=== PATIENT | male | born 1990 | race Two or more races ===

== ENCOUNTER 2024-02-03 22:28 | Emergency (ER) | payer OTHER ==
[~2024-02-03] VITALS: Ht 170.2 cm; Wt 68.3 kg
[2024-02-03 23:21] VITALS: BP 156/81; PULSE 86; RESP 16; TEMP 98.3
[2024-02-04] MEDS ORDERED: MUPI2OIN2 EX (01:03)
[2024-02-04 02:00] VITALS: O2SAT 99
[2024-02-04] MEDS: AMPICILLIN & SULBACTAM SODIUM 3 GM in SODIUM CHL 0.9% 100 ML IV SCH (02:30)
== END 2024-02-04 02:30 | disposition home or self-care (01) ==
LOC: ER 22:28
DX: T81.30XA Disruption of wound, unspecified, initial encounter (principal)

== ENCOUNTER 2024-10-21 19:59 | Emergency (ER) | payer OTHER ==
[~2024-10-21] VITALS: Ht 170.2 cm; Wt 66.0 kg
[~2024-10-21 19:59] MED LIST: MUPI2OIN2 EX
--- NOTE | 2024-10-21 20:12 | ED.PDOC ---
HPI Comments 33-year-old male with no significant past medical history brought in by self complaining of chest pain and shortness of breath for the last week. Patient states he has had tooth pain, was evaluated by his dentist, however was told no work could be done due to his elevated blood pressure. Patient states his blood pressure has been in the 160s over 100s. The chest pain is described as tightness, localized to the mid chest, is intermittent, no particular exacerbating or alleviating factors, associated with shortness of breath described as it feels hard to take a breath when I am having the pain. He denies any fever, cough, nausea, vomiting, diaphoresis or edema. Patient states he is not currently having chest pain or shortness of breath. Chief Complaint: Chest Pain Time Seen by MD: 20:10 Reviewed Notes: Nurses Notes, Medications, Allergies Allergies: Coded Allergies: NO KNOWN ALLERGIES (Unverified , 02/03/24) Home Meds Active Scripts Losartan Potassium (Losartan Potassium) 50 Mg Tab, 1 TAB PO DAILY, #30 TAB 5 Refills Prov:KAYLA GALLEGOS MD 10/21/24 Ibuprofen Micronized (Ibuprofen) 800 Mg Tab, 800 MG PO Q8HP PRN, #30 TAB Prn pain, take with food Prov:KAYLA GALLEGOS MD 10/21/24 Hydrocodone-Acetaminophen (Hydrocodone Bitartrate/AC 5-325 mg) 1 Tab Tab, 1 TAB PO Q6HP PRN, #15 TAB Prn breakthrough pain Prov:KAYLA GALLEGOS MD 10/21/24 Mupirocin (Pseudomonas Fluores (Mupirocin) 2 % Oin, 1 APPLIC EX TID, #15 GM Prov:ISAIAH GONZALEZ BUTCHER'S ASSISTANT 02/04/24 Information Source: Patient Mode of Arrival: Ambulatory Severity: Moderate Timing: Weeks Duration: Since onset Prehospital treatment: None Location: Substernal Radiation: No Radiation Onset: At Rest Cardiac Risk Factors: Smoker PE Risk Factors: None History of: None Modifying Factors: Nothing Associated Signs and Symptoms: SOB Past Medical History PAST MEDICAL HISTORY: Denies Surgical History: Denies all surgeries Family History Family History: Family hx of HTN Social History Smoker: Cigarettes Alcohol: Denies ETOH Use Drugs: Denies Drug Use Lives In: Home Constitutional: denies: chills, diaphoresis, fatigue, fever, malaise, sweats, weakness, others EENTM: denies: blurred vision, double vision, ear bleeding, ear discharge, ear drainage, ear pain, ear ringing, eye pain, eye redness, hearing loss, mouth pain, mouth swelling, nasal discharge, nose bleeding, nose congestion, nose pain, photophobia, tearing, throat pain, throat swelling, voice changes, others Respiratory: reports: shortness of breath; denies: cough, hemoptysis, orthopnea, SOB at rest, SOB with excertion, stridor, wheezing, others Cardiovascular: reports: chest pain; denies: dizzy spells, diaphoresis, Dyspnea on exertion, edema, irregular heart beat, left arm pain, lightheadedness, palpitations, PND, syncope, others Gastrointestinal: denies: abdomen distended, abdominal pain, blood streaked bowels, constipated, diarrhea, dysphagia, difficulty swallowing, hematemesis, melena, nausea, poor appetite, poor fluid intake, rectal bleeding, rectal pain, vomiting, others Genitourinary: denies: burning, dysuria, flank pain, frequency, hematuria, incontinence, penile discharge, penile sore, pain, testicle pain, testicle swelling, urgency, others Neurological: denies: dizziness, fainting, headache, left sided numbness, left sided weakness, numbness, paresthesia, pre-existing deficit, right sided numbness, right sided weakness, seizure, speech problems, tingling, tremors, weakness, others Musculoskeletal: denies: back pain, gout, joint pain, joint swelling, muscle pain, muscle stiffness, neck pain, others Integumetry: denies: bruises, change in color, change in hair/nails, dryness, laceration, lesions, lumps, rash, wounds, others Allergic/Immunocompromised: denies: Difficulty Healing, Frequent Infections, Hives, Itching, others Hematologic/Lymphatic: denies: anemia, blood clots, easy bleeding, easy bruising, swollen glands, others Endocrine: denies: excessive hunger, excessive sweating, excessive thirst, excessive urination, flushing, intolerance to cold, intolerance to heat, unexplained weight gain, unexplained weight loss, others Psychiatric: denies: anxiety, bipolar disorder, depression, hopeless, panic disorder, schizophrenia, sleepless, suicidal, others All Other Systems: Reviewed and Negative (Comprehensive systems review obtained and negative except for what is stated in the HPI.) Physical Exam General Appearance: No Apparent Distress, Normal HEENT: Other (Pupils and face symmetric. Moist mucous membranes. Left upper and right lower molars tender to palpation. No surrounding gingival erythema, edema, discharge or tenderness) Neck: Full Range of Motion, Normal Inspection Respiratory: Lungs Clear, No Accessory Muscle Use, No Respiratory Distress, Normal Breath Sounds Cardiovascular: No Edema, No JVD, Regular Rate/Rhythm Breast Exam: Deferred Gastrointestinal: Non Tender, Soft Genitalia: Deferred Pelvic: Deferred Rectal: Deferred Extremities: Normal inspection, Normal range of motion, Non-tender, No pedal edema Neurologic: Alert (Oriented x4), Normal Affect, Normal Mood, Other (Ambulatory. No gross focal deficit.) Cerebellar Function: NOT DONE Reflexes: NOT DONE Skin: Dry, Normal Color, Warm Lymphatic: NOT DONE EKG EKG : Comments Sinus rhythm, rate 94, short NE interval at 89, normal QRS and QTC intervals, normal axis, normal QRS, no ST/T changes. Was a procedure done? Was a procedure done?: No CP Differential Dx Differential Diagnosis: Angina, Anxiety / Panic Attack, Heart Failure, [place] Differential Diagnosis: HTN Essential, HTN Accelerated Differential Diagnosis: Angina, Chest Wall Pain, Costochondritis X-Ray, Labs, Meds, VS Vital Signs Date Time Temp Pulse Resp B/P (MAP) Pulse Ox O2 Delivery O2 Flow Rate FiO2 10/21/24 20:17 160/114 10/21/24 20:03 94 Lab Test 10/21/24 21:03 10/21/24 20:11 Range/Units Troponin I High Sensitivity 3 L 3 L </=54 ng/L White Blood Count 6.5 4.4-10.8 10^3/uL Red Blood Count 5.43 4.5-5.90 10^6/uL Hemoglobin 16.2 13.5-17.5 g/dL Hematocrit 46.6 41.0-53.0 % Mean Corpuscular Volume 85.8 80.0-100.0 fL Mean Corpuscular Hemoglobin 29.8 28.0-32.0 pg Mean Corpuscular Hemoglobin Concent 34.7 32.0-36.0 g/dL Red Cell Distribution Width 14.4 H 11.8-14.3 % Platelet Count 266 140-450 10^3/uL Mean Platelet Volume 7.1 6.9-10.8 fL Neutrophils (%) (Auto) 53.6 37.0-80.0 % Lymphocytes (%) (Auto) 35.1 10.0-50.0 % Monocytes (%) (Auto) 6.2 0.0-12.0 % Eosinophils (%) (Auto) 2.2 0.0-7.0 % Basophils (%) (Auto) 2.9 H 0.0-2.0 % Neutrophils # (Auto) 3.5 1.6-8.6 10 ^3/uL Lymphocytes # (Auto) 2.3 0.4-5.4 10 ^3/uL Monocytes # (Auto) 0.4 0-1.3 10 ^3/uL Eosinophils # (Auto) 0.1 0-0.8 10 ^3/uL Basophils # (Auto) 0.2 0-0.2 10 ^3/uL Nucleated Red Blood Cells 0.1 % Sodium Level 138 136-145 mmol/L Potassium Level 4.0 3.5-5.1 mmol/L Chloride Level 101 98-107 mmol/L Carbon Dioxide Level 29 20-31 mmol/L Anion Gap 8 5-15 Blood Urea Nitrogen 11 9-23 mg/dL Creatinine 1.07 0.700-1.30 mg/dL Glomerular Filtration Rate Calc 93 >90 mL/min BUN/Creatinine Ratio 10.3 10.0-20.0 Serum Glucose 101 74-106 mg/dL Calcium Level 10.2 8.7-10.4 mg/dL B-Type Natriuretic Peptide 4.87 0-100 pg/mL Current Medications Medications (Trade) Dose Ordered Sig/Radha Route Start Time Stop Time Status Last Admin Nitroglycerin (Nitro-Bid) 1 pkg ONCE ONCE TD 10/21/24 20:15 10/21/24 20:16 DC 10/21/24 20:17 Acetaminophen/ Hydrocodone Bitart (Runge 5/325MG Tab) 2 tab ONCE ONCE PO 10/21/24 20:15 10/21/24 20:16 DC 10/21/24 20:[address] [address] Ph: [phone] DIAGNOSTIC IMAGING Diagnostic Imaging Report : [id number] Signed PATIENT: BARBARA BURCIAGA ACCT: [id number] UNIT: [id number] : 1990 LOC: ER ROOM / BED: / AGE / SEX: 33 / M ADM STATUS: REG ER SERVICE 03 ORDERING PHYSICIAN: KAYLA GALLEGOS MD PROCEDURE(s): CXRP - CHEST PORTABLE REASON: cp ORDER NUMBER(s): [id number], ACCESSION NUMBER(s): [id number] EXAM: XY CHEST PORTABLE TECHNIQUE: Single frontal chest radiograph CLINICAL HISTORY: cp COMPARISON: None Findings/Impression: Frontal chest radiograph demonstrates no acute osseous or superficial soft tissue abnormalities. The trachea is midline. The cardiac silhouette and mediastinum are within normal limits. No pneumothorax, pleural effusions, or consolidations. ATED BY: GEORGIE MEDRANO DO DICTATED DATE/TIME: 10/21/242032 SIGNED BY: GEORGIE MEDRANO DO SIGNED DATE/TIME: 10/21/242032 CC: X-Ray, Labs, Meds, VS Comment 33-year-old male with no significant past medical history presenting with chest pain and shortness of breath for the past week. Vitals remarkable for BP 160/114 Exam unremarkable Rhythm strip independently interpreted by me: Sinus rhythm, rate 76, no ectopy. Chest x-ray Findings/Impression: Frontal chest radiograph demonstrates no acute osseous or superficial soft tissue abnormalities. The trachea is midline. The cardiac silhouette and mediastinum are within normal limits. No pneumothorax, pleural effusions, or consolidations. CBC, metabolic panel, BNP and 2 serial troponins unremarkable Patient treated with the following in the ED: Runge 5/325 mg 2 tablets p.o., Nitro-Bid 1/2 inch to chest wall On re-evaluation, patient states he is not in any pain, blood pressure has improved. Patient is not in respiratory distress, and oxygen saturation is normal on room air. Hospitalization was considered, however patient had rapid improvement of symptoms with treatment in the ED, and I no longer feel hospitalization is necessary. Patient now appears stable for discharge with close outpatient follow-up with his primary physician for repeat blood pressure check, and follow-up with his dentist once blood pressure is controlled. I will prescribe pain medication, as his elevated blood pressure may be due to tooth pain. Time of 1ST Reevaluation: 20:40 Reevaluation 1ST: Unchanged Time of 2ND Reevaluation: 22:27 Reevaluation 2ND: Improved Patient Education/Counseling: Diagnosis, Treatment Family Education/Counseling: No Family Present Departure 1 Departure Time of Disposition: 22:27 Impression: Primary Impression: Hypertension Qualified Codes: I10 - Essential (primary) hypertension Additional Impressions: Chest pain Qualified Codes: R07.9 - Chest pain, unspecified Odontalgia Disposition: HOME / SELF CARE / HOMELESS Condition: Stable Additional Instructions: Your blood tests, including screening test for heart attack and heart failure were unremarkable. Your chest x-ray was normal. Your blood pressure has improved. I have prescribed pain medication for your tooth pain well as blood pressure medication. Follow-up with your primary doctor in 1-2 days for repeat blood pressure check. Follow-up with your dentist as soon as possible once blood pressure is under control. e-Prescriptions Losartan Potassium (Losartan Potassium) 50 Mg Tab 1 TAB PO DAILY, #30 TAB 5 Refills Prov: KAYLA GALLEGOS MD 10/21/24 Ibuprofen Micronized (Ibuprofen) 800 Mg Tab 800 MG PO Q8HP PRN, #30 TAB Prn pain, take with food Prov: KAYLA GALLEGOS MD 10/21/24 Hydrocodone-Acetaminophen (Hydrocodone Bitartrate/AC 5-325 mg) 1 Tab Tab 1 TAB PO Q6HP PRN, #15 TAB Prn breakthrough pain Prov: KAYLA GALLEGOS MD 10/21/24 Discharged With: Relative Critical Care Note Critical Care Time?: No Stability Stability form required: No Heart Score Heart Score: Heart Score Response (Comments) Value History N/A 0 EKG N/A 0 Age N/A 0 Risk Factors N/A 0 Troponin N/A 0 Total 0 I personally scribed for KAYLA GALLEGOS MD ([email or web address]) on 10/21/24 at 20:12. Electronically submitted by Cynthia Velazquez ([email or web address]). I personally scribed for KAYLA GALLEGOS MD ([email or web address]) on 10/21/24 at 2 2:04. Electronically submitted by Cynthia Velazquez ([email or web address]). KAYLA GALLEGOS MD Oct 21, 2024 20:12
[2024-10-21] MEDS: HYDROcodone-ACET 5/325MG TAB PO ONE (20:17)
[2024-10-21] MEDS: NITROGLYCERIN 2% OINT 1GM PKG TD ONE (20:17)
[2024-10-21 20:30] LABS: Basophils # (auto) 0.2 10 ^3/uL (0-0.2); Basophils % (auto) 2.9 % (0.0-2.0); Eosinophils # (auto) 0.1 10 ^3/uL (0-0.8); Eosinophils % (auto) 2.2 % (0.0-7.0); Hematocrit 46.6 % (41.0-53.0); Hemoglobin 16.2 g/dL (13.5-17.5); Lymphocytes # (auto) 2.3 10 ^3/uL (0.4-5.4); Lymphocytes % (auto) 35.1 % (10.0-50.0); Mean Corpuscular Hemoglobin 29.8 pg (28.0-32.0); Mean Corpuscular Hgb Conc. 34.7 g/dL (32.0-36.0); Mean Corpuscular Volume 85.8 fL (80.0-100.0); Monocytes # (auto) 0.4 10 ^3/uL (0-1.3); Monocytes % (auto) 6.2 % (0.0-12.0); Neutrophils # (auto) 3.5 10 ^3/uL (1.6-8.6); Neutrophils % (auto) 53.6 % (37.0-80.0); Nucleated Red Blood Cells % 0.1 %; Platelet Count (auto) 266 10^3/uL (140-450); Red Blood Cells 5.43 10^6/uL (4.5-5.90); Red Cell Distribution Width 14.4 % (11.8-14.3); White Blood Cell 6.5 10^3/uL (4.4-10.8)
[2024-10-21 20:33] LABS: Chloride 101 mmol/L (98-107); Sodium 138 mmol/L (136-145)
[2024-10-21 20:34] LABS: Anion Gap 8 (5-15); Carbon Dioxide 29 mmol/L (20-31)
[2024-10-21 20:35] LABS: Calcium 10.2 mg/dL (8.7-10.4)
--- NOTE | 2024-10-21 20:35 | DVH ---
EXAM: XY CHEST PORTABLE TECHNIQUE: Single frontal chest radiograph CLINICAL HISTORY: cp COMPARISON: None Findings/Impression: Frontal chest radiograph demonstrates no acute osseous or superficial soft tissue abnormalities. The trachea is midline. The cardiac silhouette and mediastinum are within normal limits. No pneumothorax, pleural effusions, or consolidations.
[2024-10-21 20:39] LABS: BUN/Creatinine Ratio 10.3 (10.0-20.0); Blood Urea Nitrogen 11 mg/dL (9-23); Glucose 101 mg/dL (74-106)
[2024-10-21] MEDS ORDERED: LOSA-534 PO (22:31)
[2024-10-21] MEDS ORDERED: IBUP-1455 PO (22:31)
[2024-10-21] MEDS ORDERED: HYDR-4902 PO (22:31)
[2024-10-22 01:02] VITALS: PULSE 85; RESP 16; TEMP 97.9; O2SAT 95
[2024-10-22] MEDS: cloNIDine HCL 0.1 MG TAB PO ONE ×2 (01:12→01:30)
[2024-10-22 02:37] VITALS: BP 157/96
--- NOTE | 2024-10-22 12:34 | ECG ---
[facility] Test Date: 2024-10-21 Test Time: 20:03:46 Pat Name: BARBARA BURCIAGA Department: ER Room: Gender: M [employer]: : 1990 Requested By: EMERGENCY EMERGENCY Order Number: [id number] Reading MD: Douglas Candelario Measurements Intervals [place] Rate: 94 P: 46 [place]: 89 QRS: 56 QRSD: 82 T: 39 QT: 343 QTc: 429 Interpretive Statements Sinus rhythm Short [place] interval Electronically Signed On 10-25-2024 17:33:48 PST by Douglas Candelario Please click the below link to view image of tracing.
== END 2024-10-22 02:38 | disposition home or self-care (01) ==
LOC: ER 19:59
DX: I10 Essential (primary) hypertension (principal); R07.89 Other chest pain; K08.89 Other specified disorders of teeth and supporting structures; F17.210 Nicotine dependence, cigarettes, uncomplicated; Z79.899 Other long term (current) drug therapy
CPT/HCPCS: 36415; 71045; 80048; 83880; 84484; 85025; 93005